=== PATIENT | female | born 1955 | race Caucasian/White ===

== ENCOUNTER 2016-06-18 17:09 | Emergency (ER) | payer BC ==
[~2016-06-18] VITALS: Ht 162.6 cm; Wt 64.0 kg
[~2016-06-18 17:09] MED LIST: ESCI10TA PO; SPIR25TA4 PO
[2016-06-18 17:19] VITALS: BP 132/75; PULSE 79; RESP 16; TEMP 97.9; O2SAT 97
--- NOTE | 2016-06-18 17:25 | NUR ---
No beds available. Patient to waiting rm.
--- NOTE | 2016-06-18 17:34 | NUR ---
Patient to ER bed 7 to gown for evaluation. Side rails up. Report given to Bertha MACIAS.
--- NOTE | 2016-06-18 17:37 | NUR ---
ER Dr. Herndon at bedside examining patient.
--- NOTE | 2016-06-18 17:38 | NUR ---
Patient to ER C/O dog bite to right hand. 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 Patient states that she has records showing that the dog has all vaccinations up to date. 2 significant puncture wounds on right hand, no bleeding, no deformity, mild reddness, mild pain 5/10. AAOx4, unlabored breathing, no signs of acute distress.
[2016-06-18] MEDS ORDERED: BACITRACIN 1 GM OINT TP ONE (17:45)
--- NOTE | 2016-06-18 17:46 | NUR ---
Right hand cleaned with NS & iodine. Bacitracin applied. Dressing on. Patient educated on signs and symptoms of infection and the need to return to ER or primary if symptoms worsens.
--- NOTE | 2016-06-18 17:50 | NUR ---
Patient refuses to provide sufficient information to be able to file [facility] report. Patient advised to call [facility] and file report
[2016-06-18 17:58] VITALS: BP 122/73; PULSE 74; RESP 16; TEMP 98.2; O2SAT 98
--- NOTE | 2016-06-18 17:58 | NUR ---
Patient given written and verbal discharge instructions and verbalizes understanding. ER MD Herndon discussed with patient the results and treatment provided. Patient in stable condition. ID arm band removed. Rx of motrin & augmentin given. Patient educated on pain management and to follow up with PMD. Pain Scale 0/10. Opportunity for questions provided and answered.
== END 2016-06-18 17:58 | disposition home or self-care (01) ==
LOC: SED 17:09
DX: S61.451A Open bite of right hand, initial encounter (principal); J45.909 Unspecified asthma, uncomplicated; R03.0 Elevated blood-pressure reading, without diagnosis of hypertension; Z88.1 Allergy status to other antibiotic agents; W54.0XXA Bitten by dog, initial encounter; Y93.89 Activity, other specified; Y92.89 Other specified places as the place of occurrence of the external cause; Y99.8 Other external cause status
CPT/HCPCS: 99283

== ENCOUNTER 2016-08-19 18:45 | Emergency (ER) | payer BC ==
[~2016-08-19] VITALS: Ht 162.6 cm; Wt 63.5 kg
[2016-08-19 18:52] VITALS: BP_SYST 146
[2016-08-19] MEDS ORDERED: DOXYCYCLINE HYCLATE 100 MG CAPSULE PO ONE (20:15)
[2016-08-19] MEDS ORDERED: DOXYCYCLINE HYCLATE 100 MG CAPSULE ONE (20:57)
[2016-08-19 20:58] VITALS: BP_SYST 146
== END 2016-08-19 20:58 | disposition home or self-care (01) ==
LOC: SED 18:45
DX: S61.512A Laceration without foreign body of left wrist, initial encounter (principal); J45.909 Unspecified asthma, uncomplicated; Z88.1 Allergy status to other antibiotic agents; W55.01XA Bitten by cat, initial encounter; Y93.89 Activity, other specified; Y99.0 Civilian activity done for income or pay; Y92.89 Other specified places as the place of occurrence of the external cause
CPT/HCPCS: 99284

== ENCOUNTER 2017-05-23 14:49 | Emergency (ER) | payer BC ==
[~2017-05-23] VITALS: Ht 165.1 cm; Wt 59.0 kg
[2017-05-23 15:35] VITALS: BP_SYST 127
--- NOTE | 2017-05-23 15:47 | NUR ---
Placed in room 2 . Placed on pvc monitor, blood pressure machine and pulse oximeter. To gown for exam. Side rails up. Report given to Ramesh MACIAS.
--- NOTE | 2017-05-23 15:50 | NUR ---
Pt AAOx4 ambulated into ED c/o 01/25 abdominal pain x3 days. Pt states she feels relief when she is on her hands and knees position. Pt denies N/V, but had few episodes of diarrhea. No other injuries/complaints per pt/noted. Will continue to monitor.
--- NOTE | 2017-05-23 16:00 | NUR ---
ER Dr. Singh at bedside examining patient.
[2017-05-23] MEDS ORDERED: PIPERACILLIN/TAZOBACTAM 3.375 GM/VIAL (ZOSYN) IV ONE (16:15)
[2017-05-23] MEDS ORDERED: DIPHENHYDRAMINE INJ 50 MG/ML VIAL IVP ONE (16:15)
[2017-05-23] MEDS ORDERED: PIPERACILLIN/TAZO 3.38 GM in NS 50 ML IV ONE (16:15)
[2017-05-23] MEDS ORDERED: MORPHINE SULFATE 10 MG/ML VIAL IVP ONE (16:15)
--- NOTE | 2017-05-23 16:35 | NUR ---
Medication administered. Pt tolerated well. No adverse reactions noted.
[2017-05-23 16:42] LABS: BASOPHILS % (AUTO) 0.8 % (0.0-2.0); HEMATOCRIT 50.6 % (36-48); HEMOGLOBIN 16.6 g/dL (12.0-16.0); LYMPHOCYTES % (AUTO) 19.4 % (20.5-51.5); MEAN CORPUSCULAR HEMOGLOBIN 29 pg (27-31); MEAN CORPUSCULAR HGB CONC 33 % (32-36); MEAN CORPUSCULAR VOLUME 88 fL (79.0-98.0); MONOCYTES # (AUTO) 0.5 K/uL (0.0-1.0); MONOCYTES % (AUTO) 9.7 % (1.7-9.3); NEUTROPHILS # (AUTO) 3.7 K/uL (1.8-7.7); NEUTROPHILS % (AUTO) 70.1 % (40.0-70.0); PLATELET COUNT (AUTO) 250 K/uL (130-430); RED BLOOD CELL COUNT(AUTO) 5.76 MIL/uL (4.2-6.2); WHITE BLOOD COUNT (AUTO) 5.2 K/uL (4.8-10.8)
[2017-05-23] MEDS ORDERED: NS 500 ML IV ONE (16:45)
[2017-05-23 17:00] LABS: PROTHROMBIN TIME 9.9 SECS (9.5-12.5)
[2017-05-23 17:01] LABS: CALCIUM 9.4 mg/dL (8.4-11.0); CREATININE 1.7 mg/dL (0.55-1.30); POTASSIUM 3.8 mmol/L (3.5-5.1)
[2017-05-23 17:03] LABS: ALBUMIN 4.1 g/dL (3.4-4.8); TOTAL BILIRUBIN 0.5 mg/dL (0.0-1.0)
[2017-05-23] MEDS ORDERED: NACL 0.9% 1,000 ML IV ONE (17:15)
--- NOTE | 2017-05-23 17:37 | NUR ---
Pt taken to radiology via gurney in stable condition
[2017-05-23 18:07] LABS: BILIRUBIN,URINE 1+ (NEGATIVE); BLOOD, URINE 1+ (NEGATIVE); CLARITY/URINE SL HAZY (CLEAR); COLOR,URINE YELLOW (YELLOW); GLUCOSE,URINE NEGATIVE (NEGATIVE); KETONES,URINE TRACE (NEGATIVE); LEUKOCYTE ESTERASE ,URINE NEGATIVE (NEGATIVE); NITRITE, URINE NEGATIVE (NEGATIVE); PROTEIN URINE 2+ (NEGATIVE); UROBILINOGEN,URINE 0.2 (0.2-1.0)
[2017-05-23 18:17] LABS: BACTERIA,URINE FEW /HPF (None Seen); WBC,URINE 0-3 /HPF (0-3)
[2017-05-23 18:18] LABS: FINE GRANULAR CASTS,URINE 0-10 /LPF (None Seen); HYALINE CASTS, URINE 0-10 /LPF (None Seen); MUCUS,URINE 1+ /LPF (None Seen)
[2017-05-23] MEDS ORDERED: HYDROmorphone 1 MG INJ. 1 MG/ML AMPUL IVP ONE (18:30)
[2017-05-23] MEDS ORDERED: HYDROmorphone 2 MG/ML VIAL IVP ONE (18:30)
--- NOTE | 2017-05-23 18:53 | NUR ---
Patient given written and verbal discharge instructions and verbalizes understanding. ER MD Singh discussed with patient the results and treatment provided. Patient in stable condition. ID arm band removed. IV catheter removed intact and dressing applied, no active bleeding. Rx of Cipro, [place], Lomotil given. Patient educated on pain management and to follow up with PMD. Pain Scale 0. Opportunity for questions provided and answered.
[2017-05-23 22:36] VITALS: BP_SYST 125
== END 2017-05-23 22:36 | disposition home or self-care (01) ==
LOC: SED 14:49
DX: K52.9 Noninfective gastroenteritis and colitis, unspecified (principal); J45.909 Unspecified asthma, uncomplicated; Z88.1 Allergy status to other antibiotic agents
CPT/HCPCS: 36415; 71045; 74176; 80053; 81000; 83605; 83690; 85025; 85610; 87040; 93005; 96361; 96365; 96375; 99285; J1170; J1200; J2270; J2543; J7030